=== PATIENT | male | born 1990 | race Caucasian/White ===

== ENCOUNTER → 2021-05-25 | Outpatient (CLI) | payer OTHER ==
[2021-05-27 17:11] LABS: CHLAMYDIA BY NAA Negative (Negative); GONOCOCCUS BY NAA Negative (Negative); TRICH VAG BY NAA Negative (Negative)
== END | disposition home or self-care (01) ==
LOC: LAB SHORT 09:50
PROVIDERS: Physician Assistant
DX: Z20.9 Contact with and (suspected) exposure to unspecified communicable disease (principal)
CPT/HCPCS: 87086; 87491; 87591; 87661

== ENCOUNTER 2023-02-20 12:20 | Emergency (ER) | payer OTHER ==
[~2023-02-20] VITALS: Ht 180.3 cm; Wt 113.4 kg
[2023-02-20 12:27] VITALS: BP 129/84
[2023-02-20] MEDS ORDERED: Imitrex100 MG PO (12:33)
== END 2023-02-20 12:35 | disposition home or self-care (01) ==
LOC: ER 12:20
DX: G43.909 Migraine, unspecified, not intractable, without status migrainosus (principal); F17.200 Nicotine dependence, unspecified, uncomplicated
CPT/HCPCS: 99283